=== PATIENT | male | born 1940 | race Caucasian/White ===

== ENCOUNTER 2020-05-16 13:06 | Inpatient (IN) | payer OTHER ==
[2020-05-16] MEDS ORDERED: SODIUM CHLORIDE 0.9% 500 ML INFUS.BAG IV ONE (13:38)
[2020-05-16] MEDS ORDERED: DEXAMETHASONE SOD PHOSPHATE 4 MG/1 ML VIAL IVPUSH ONE (13:38)
[2020-05-16 14:21] LABS: BASO % 0.9 % (0-2.0); HEMATOCRIT 25.1 % (35.4-49); HEMOGLOBIN 8.4 GM/dL (11.7-16.9); LYMPH % 10.3 % (8-40); MCH 31.3 pg (25.7-33.7); MCHC 33.5 g/dl (32.0-35.9); MEAN CELL VOLUME 93.4 fl (80-96); MEAN PLT VOLUME 9.8 fl (7.5-11.1); MONO % 10.3 % (3.8-10.2); NEUT % 78.5 % (42.8-82.8); PLATELET COUNT 620 K/MM3 (134-434); RBC 2.69 M/mm3 (4.00-5.60); RDW 18.1 % (11.9-15.9); WHITE BLOOD COUNT 18.7 K/mm3 (4.0-10.0)
[2020-05-16 14:24] LABS: VENOUS O2 SATURATION 71.4 % (70-80); VENOUS PCO2 39.6 mmHg (38-52); VENOUS PH 7.425 (7.310-7.410)
[2020-05-16 14:28] LABS: INR 1.51 (0.83-1.09)
[2020-05-16 14:30] LABS: ACTIVATED PTT 32.1 SECONDS (25.2-36.5)
[2020-05-16 14:39] LABS: POTASSIUM 4.4 mmol/L (3.5-5.1)
[2020-05-16 14:41] LABS: CALCIUM 7.5 mg/dL (8.5-10.1)
[2020-05-16 14:42] LABS: ALBUMIN 2.9 g/dl (3.4-5.0); BLOOD UREA NITROGEN 22.3 mg/dL (7-18)
[2020-05-16] MEDS ORDERED: DEXAMETHASONE SOD PHOSPHATE 4 MG/1 ML VIAL ONE (14:44)
[2020-05-16 14:45] LABS: BILIRUBIN,DIRECT 0.3 mg/dL (0.0-0.2)
[2020-05-16 14:46] LABS: ANISOCYTOSIS 1+; MACROCYTOSIS 0; PLATELET ESTIMATE INCREASED
[2020-05-16 14:47] LABS: BILIRUBIN,TOTAL 0.5 mg/dL (0.2-1); TOT PROT 6.2 g/dl (6.4-8.2)
[2020-05-16 14:58] LABS: CREATININE 1.1 mg/dL (0.55-1.3)
[2020-05-16 17:31] LABS: URINE APPEARANCE CLEAR; URINE BILIRUBIN NEGATIVE (NEGATIVE); URINE COLOR YELLOW; URINE GLUCOSE (UA) NEGATIVE (NEGATIVE); URINE KETONE NEGATIVE (NEGATIVE); URINE LEUK ESTERASE NEGATIVE (NEGATIVE); URINE NITRITE NEGATIVE (NEGATIVE); URINE PROTEIN TRACE (NEGATIVE); URINE UROBILINOGEN 0.2 mg/dL (0.2-1.0)
[2020-05-16] MEDS: ENOXAPARIN NA (PORCINE) 40 MG/0.4 ML DISP.SYRIN SQ SCH (17:45)
[2020-05-16] MEDS ORDERED: SODIUM CHLORIDE 1,000 ML IV SCH (17:45)
[2020-05-16] MEDS ORDERED: HYDROXYUREA 500 MG CAPSULE PO SCH (18:30)
[2020-05-17 08:17] LABS: BASO % 0.6 % (0-2.0); HEMOGLOBIN 8.5 GM/dL (11.7-16.9); LYMPH % 8.9 % (8-40); MCH 31.2 pg (25.7-33.7); MCHC 32.8 g/dl (32.0-35.9); MEAN CELL VOLUME 95.1 fl (80-96); MEAN PLT VOLUME 9.9 fl (7.5-11.1); MONO % 6.3 % (3.8-10.2); NEUT % 84.2 % (42.8-82.8); PLATELET COUNT 713 K/MM3 (134-434); RBC 2.74 M/mm3 (4.00-5.60); RDW 18.6 % (11.9-15.9); WHITE BLOOD COUNT 24.3 K/mm3 (4.0-10.0)
[2020-05-17 08:46] LABS: POTASSIUM 5.1 mmol/L (3.5-5.1)
[2020-05-17 08:51] LABS: ALBUMIN 2.7 g/dl (3.4-5.0); BLOOD UREA NITROGEN 18.4 mg/dL (7-18); CALCIUM 7.9 mg/dL (8.5-10.1); MAGNESIUM 2.1 mg/dL (1.8-2.4)
[2020-05-17 08:53] LABS: CREATININE 0.8 mg/dL (0.55-1.3)
[2020-05-17 08:54] LABS: BILIRUBIN,TOTAL 0.8 mg/dL (0.2-1); PHOSPHOROUS 3.6 mg/dL (2.5-4.9); TOT PROT 6.2 g/dl (6.4-8.2)
[2020-05-17] MEDS: DEXAMETHASONE SOD PHOSPHATE 4 MG/1 ML VIAL IVPUSH SCH (09:52)
[2020-05-17] MEDS: ENOXAPARIN NA (PORCINE) 40 MG/0.4 ML DISP.SYRIN SQ SCH (09:53)
[2020-05-17] MEDS ORDERED: HYDROXYUREA 500 MG CAPSULE PO SCH (10:00)
[2020-05-17] MEDS: HYDROXYUREA 500 MG CAPSULE PO SCH (10:50)
[2020-05-17] MEDS: ACETAMINOPHEN 325 MG TABLET (FP) PO PRN ×2 (12:19→18:35)
[2020-05-17 12:27] LABS: ANISOCYTOSIS 1+; MACROCYTOSIS 0; OVALOCYTE 1+; PLATELET ESTIMATE INCREASED
[2020-05-17] MEDS ORDERED: ENOXAPARIN NA (PORCINE) 40 MG/0.4 ML DISP.SYRIN SQ SCH (13:15)
[2020-05-17] MEDS ORDERED: PT OWN MED DRAWER 7, Y5N ONE (14:06)
[2020-05-17] MEDS: ZINC SULFATE 220 MG CAPSULE (FP) PO SCH (14:15)
[2020-05-17] MEDS: AZITHROMYCIN IVPB 500 MG/250 ML BAG IVPB SCH (14:15)
[2020-05-17] MEDS ORDERED: REMDESIVIR 200 MG in SODIUM CHLORIDE 210 ML IVPB ONE (15:00)
[2020-05-17] MEDS ORDERED: SODIUM CHLORIDE 0.45% 1,000 ML IV SCH (16:15)
[2020-05-17] MEDS: ASCORBIC ACID 250 MG TABLET (FP) PO SCH (16:30)
[2020-05-17] MEDS: CHOLECALCIFEROL (VIT D3) 5000 UNITS (125 MCG) CAP PO SCH (16:30)
[2020-05-17] MEDS: APIXABAN 5 MG TABLET PO SCH (23:06)
[2020-05-18] MEDS: ACETAMINOPHEN 325 MG TABLET (FP) PO PRN (03:07)
[2020-05-18 07:57] LABS: BASO % 0.5 % (0-2.0); HEMATOCRIT 24.7 % (35.4-49); HEMOGLOBIN 7.9 GM/dL (11.7-16.9); LYMPH % 7.7 % (8-40); MEAN CELL VOLUME 96.8 fl (80-96); MEAN PLT VOLUME 10.3 fl (7.5-11.1); MONO % 8.6 % (3.8-10.2); NEUT % 83.2 % (42.8-82.8); PLATELET COUNT 793 K/MM3 (134-434); RBC 2.55 M/mm3 (4.00-5.60); RDW 18.1 % (11.9-15.9)
[2020-05-18 08:20] LABS: POTASSIUM 5.1 mmol/L (3.5-5.1)
[2020-05-18] MEDS ORDERED: ACETAMINOPHEN INJECTION 100 ML IVPB ONE (08:42)
[2020-05-18 08:47] LABS: WHITE BLOOD COUNT 27.8 K/mm3 (4.0-10.0)
[2020-05-18 09:04] LABS: ARTERIAL BLD GAS O2 SATURATION 81.8 mmHg (95-98); ARTERIAL BLOOD GAS BASE EXCESS -6.5 mmol/L (-2-2); ARTERIAL BLOOD GAS PO2 48.7 mmHg (80-100); ARTERIAL BLOOD GAS pH 7.327 (7.350-7.450)
[2020-05-18 09:06] LABS: ALLENS TEST POSITIVE; VENT RATE 20
[2020-05-18 09:06] LABS: ALBUMIN 2.6 g/dl (3.4-5.0); BLOOD UREA NITROGEN 17.9 mg/dL (7-18); CALCIUM 7.7 mg/dL (8.5-10.1)
[2020-05-18 09:07] LABS: VENT MODE IPAP 20/EPAP 14
[2020-05-18 09:09] LABS: CREATININE 0.7 mg/dL (0.55-1.3)
[2020-05-18 09:10] LABS: BILIRUBIN,TOTAL 0.7 mg/dL (0.2-1); TOT PROT 6.3 g/dl (6.4-8.2)
[2020-05-18] MEDS ORDERED: PT OWN MED DRAWER 7, Y5N ONE (09:21)
[2020-05-18] MEDS: APIXABAN 5 MG TABLET PO SCH (09:32)
[2020-05-18] MEDS: CHOLECALCIFEROL (VIT D3) 5000 UNITS (125 MCG) CAP PO SCH (09:33)
[2020-05-18] MEDS: ZINC SULFATE 220 MG CAPSULE (FP) PO SCH (09:33)
[2020-05-18] MEDS: ASCORBIC ACID 250 MG TABLET (FP) PO SCH (09:33)
[2020-05-18] MEDS: AZITHROMYCIN IVPB 500 MG/250 ML BAG IVPB SCH (09:34)
[2020-05-18] MEDS: DEXAMETHASONE SOD PHOSPHATE 4 MG/1 ML VIAL IVPUSH SCH (09:35)
[2020-05-18] MEDS: ACETAMINOPHEN 1000 MG/100 ML VIAL (NON FORMULARY) IVPB PRN ×2 (09:35→21:51)
[2020-05-18] MEDS ORDERED: HYDROXYUREA 500 MG CAPSULE PO SCH (10:00)
[2020-05-18 11:21] LABS: ANISOCYTOSIS 1+; MACROCYTOSIS 1+; PLATELET ESTIMATE INCREASED
[2020-05-18] MEDS: REMDESIVIR 100 MG in SODIUM CHLORIDE 230 ML IVPB SCH (15:14)
[2020-05-18] MEDS ORDERED: MORPHINE SULFATE 2 MG/ML VIAL ONE (18:00)
[2020-05-18] MEDS ORDERED: MORPHINE SULFATE 2 MG/ML VIAL IVPUSH ONE (18:15)
[2020-05-18] MEDS: ENOXAPARIN NA (PORCINE) 80 MG/0.8 ML DISP.SYRIN SQ SCH (21:35)
[2020-05-19 06:58] LABS: BASO % 0.4 % (0-2.0); HEMATOCRIT 25.4 % (35.4-49); HEMOGLOBIN 7.9 GM/dL (11.7-16.9); LYMPH % 9.8 % (8-40); MCH 30.1 pg (25.7-33.7); MCHC 31.1 g/dl (32.0-35.9); MEAN CELL VOLUME 96.7 fl (80-96); MEAN PLT VOLUME 11.1 fl (7.5-11.1); MONO % 6.7 % (3.8-10.2); NEUT % 83.1 % (42.8-82.8); RBC 2.63 M/mm3 (4.00-5.60); RDW 18.5 % (11.9-15.9)
[2020-05-19 07:31] LABS: CHLORIDE 103 mmol/L (98-107); POTASSIUM 5.2 mmol/L (3.5-5.1); SODIUM 137 mmol/L (136-145)
[2020-05-19 07:41] LABS: CALCIUM 8.4 mg/dL (8.5-10.1)
[2020-05-19 07:42] LABS: ALBUMIN 2.6 g/dl (3.4-5.0); ANION GAP 8 MMOL/L (8-16); BLOOD UREA NITROGEN 29.5 mg/dL (7-18); CO2 25 mmol/L (21-32); GLUCOSE,RANDOM 107 mg/dL (74-106)
[2020-05-19 07:45] LABS: CREATININE 0.9 mg/dL (0.55-1.3); SGOT/AST 107 U/L (15-37); SGPT/ALT 71 U/L (13-61)
[2020-05-19 07:46] LABS: BILIRUBIN,TOTAL 0.8 mg/dL (0.2-1); TOT PROT 6.3 g/dl (6.4-8.2)
[2020-05-19 07:47] LABS: ALK PHOS 92 U/L (45-117)
[2020-05-19 07:57] LABS: LDH > 1000 U/L (87-246)
[2020-05-19] MEDS ORDERED: MIDAZOLAM 100 MG in SODIUM CHLORIDE 100 ML IVPB SCH (08:15)
[2020-05-19 10:15] LABS: ANISOCYTOSIS 1+; MACROCYTOSIS 1+; OVALOCYTE 1+; PLATELET ESTIMATE INCREASED
[2020-05-19] MEDS: AZITHROMYCIN IVPB 500 MG/250 ML BAG IVPB SCH (10:18)
[2020-05-19] MEDS: ENOXAPARIN NA (PORCINE) 80 MG/0.8 ML DISP.SYRIN SQ SCH ×2 (10:18→22:26)
[2020-05-19] MEDS: DEXAMETHASONE SOD PHOSPHATE 4 MG/1 ML VIAL IVPUSH SCH (10:18)
[2020-05-19] MEDS: ASCORBIC ACID 250 MG TABLET (FP) PO SCH (10:41)
[2020-05-19] MEDS: CHOLECALCIFEROL (VIT D3) 5000 UNITS (125 MCG) CAP PO SCH (10:41)
[2020-05-19] MEDS: ZINC SULFATE 220 MG CAPSULE (FP) PO SCH (10:41)
[2020-05-19] MEDS: HYDROXYUREA 500 MG CAPSULE PO SCH ×2 (10:41→14:56)
[2020-05-19 11:59] LABS: PLATELET COUNT 563 K/MM3 (134-434)
[2020-05-19] MEDS ORDERED: PT OWN MED DRAWER 7, Y5N ONE ×3 (12:38→16:04)
[2020-05-19] MEDS ORDERED: SODIUM ZIRCONIUM CYCLOSILICATE (LOKELMA) 5 GM PACKET PO ONE (12:40)
[2020-05-19] MEDS: MUPIROCIN 2% TOPICAL OINTMENT FOR DECOLONIZATION NS SCH ×2 (13:33→22:26)
[2020-05-19] MEDS: REMDESIVIR 100 MG in SODIUM CHLORIDE 230 ML IVPB SCH (16:20)
[2020-05-19] MEDS ORDERED: ACETAMINOPHEN 325 MG TABLET (FP) PO PRN (19:24)
[2020-05-19] MEDS: CHLORHEXIDINE GLUCONATE 4% CLEANSER FOR DECOLONIZATION TP SCH (22:26)
[2020-05-19] MEDS ORDERED: DEXAMETHASONE SOD PHOSPHATE 4 MG/1 ML VIAL IVPUSH ONE (22:49)
[2020-05-20] MEDS ORDERED: LORazepam 2 MG/ML SDV VIAL IVPUSH ONE ×2 (01:23→01:56)
[2020-05-20] MEDS ORDERED: RAPID SEQUENCE INTUBATION KIT NR ONE ×2 (02:38→05:55)
[2020-05-20] MEDS ORDERED: ACETAMINOPHEN INJECTION 100 ML IVPB ONE (02:42)
[2020-05-20] MEDS ORDERED: ACETAMINOPHEN 1000 MG/100 ML VIAL (NON FORMULARY) IVPB ONE (03:07)
[2020-05-20] MEDS ORDERED: MIDAZOLAM 100 MG/100 ML MG IVPB ONE ×2 (06:10→18:49)
[2020-05-20] MEDS ORDERED: FENTANYL IVPB 500 MCG/100 ML BAG IVPB ONE (06:10)
[2020-05-20 06:27] LABS: ARTERIAL BLD GAS O2 SATURATION 90.1 mmHg (95-98); ARTERIAL BLOOD GAS BASE EXCESS -3.7 mmol/L (-2-2); ARTERIAL BLOOD GAS PO2 62.9 mmHg (80-100); ARTERIAL BLOOD GAS pH 7.314 (7.350-7.450)
[2020-05-20 06:28] LABS: ALLENS TEST POSITIVE; VENT MODE S/T; VENT RATE 20
[2020-05-20] MEDS: MIDAZOLAM 100 MG in SODIUM CHLORIDE 100 ML IVPB SCH (06:30)
[2020-05-20] MEDS: FENTANYL IVPB 500 MCG/100 ML BAG IVPB SCH ×2 (06:30→21:35)
[2020-05-20] MEDS: VECURONIUM BROMIDE 100 MG/100 ML BAG IVPB SCH (06:30)
[2020-05-20] MEDS ORDERED: ETOMIDATE 40 MG/20 ML VIAL IVPUSH ONE (06:39)
[2020-05-20] MEDS ORDERED: SUCCINYLCHOLINE CHLORIDE 200 MG/10 ML VIAL IVPUSH ONE (06:39)
[2020-05-20] MEDS ORDERED: LACTATED RINGERS SOLUTION 1000 ML INFUS.BAG IV ONE (06:39)
[2020-05-20 07:11] LABS: BASO % 0.2 % (0-2.0); HEMATOCRIT 28.7 % (35.4-49); HEMOGLOBIN 8.9 GM/dL (11.7-16.9); LYMPH % 9.2 % (8-40); MCH 30.3 pg (25.7-33.7); MEAN CELL VOLUME 97.8 fl (80-96); MEAN PLT VOLUME 10.8 fl (7.5-11.1); MONO % 3.1 % (3.8-10.2); NEUT % 87.5 % (42.8-82.8); PLATELET COUNT 712 K/MM3 (134-434); RBC 2.94 M/mm3 (4.00-5.60); RDW 18.5 % (11.9-15.9)
[2020-05-20 07:27] LABS: POTASSIUM 5.3 mmol/L (3.5-5.1)
[2020-05-20 07:33] LABS: ALBUMIN 2.4 g/dl (3.4-5.0); BLOOD UREA NITROGEN 34.5 mg/dL (7-18); CALCIUM 8.1 mg/dL (8.5-10.1); MAGNESIUM 2.5 mg/dL (1.8-2.4)
[2020-05-20 07:36] LABS: CREATININE 1.2 mg/dL (0.55-1.3)
[2020-05-20 07:37] LABS: PHOSPHOROUS 6.7 mg/dL (2.5-4.9)
[2020-05-20 07:38] LABS: TOT PROT 6.8 g/dl (6.4-8.2)
[2020-05-20] MEDS ORDERED: SODIUM ZIRCONIUM CYCLOSILICATE (LOKELMA) 5 GM PACKET PO ONE ×2 (08:37→15:15)
[2020-05-20] MEDS ORDERED: PT OWN MED DRAWER 7, Y5N ONE ×3 (09:41→21:31)
[2020-05-20] MEDS: ENOXAPARIN NA (PORCINE) 80 MG/0.8 ML DISP.SYRIN SQ SCH ×2 (09:47→21:35)
[2020-05-20] MEDS: AZITHROMYCIN IVPB 500 MG/250 ML BAG IVPB SCH (09:47)
[2020-05-20] MEDS: MUPIROCIN 2% TOPICAL OINTMENT FOR DECOLONIZATION NS SCH ×2 (09:48→21:35)
[2020-05-20] MEDS: DEXAMETHASONE SOD PHOSPHATE 4 MG/1 ML VIAL IVPUSH SCH (09:48)
[2020-05-20 09:59] LABS: ANISOCYTOSIS 2+; MACROCYTOSIS 0; PLATELET ESTIMATE INCREASED; TARGET CELLS 1+
[2020-05-20] MEDS ORDERED: HYDROXYUREA 500 MG CAPSULE PO SCH ×2 (10:00→18:26)
[2020-05-20 11:09] LABS: ARTERIAL BLD GAS O2 SATURATION 88.4 mmHg (95-98); ARTERIAL BLOOD GAS BASE EXCESS -3.4 mmol/L (-2-2); ARTERIAL BLOOD GAS PO2 64.1 mmHg (80-100); ARTERIAL BLOOD GAS pH 7.245 (7.350-7.450)
[2020-05-20] MEDS: ASCORBIC ACID 250 MG TABLET (FP) PO SCH (11:10)
[2020-05-20] MEDS: CHOLECALCIFEROL (VIT D3) 5000 UNITS (125 MCG) CAP PO SCH (11:10)
[2020-05-20] MEDS: ZINC SULFATE 220 MG CAPSULE (FP) PO SCH (11:10)
[2020-05-20 11:14] LABS: ALLENS TEST POSITIVE
[2020-05-20 11:15] LABS: VENT MODE A/C; VENT RATE 28
[2020-05-20] MEDS: SODIUM CHLORIDE 1,000 ML IV SCH (12:31)
[2020-05-20] MEDS ORDERED: NOREPINEPHRINE BITARTRATE 8,000 MCG in DEXTROSE 5%-WATER - 492 ML IV SCH (13:30)
[2020-05-20] MEDS: NOREPINEPHRINE D5W PREMIX 16,000 MCG/500 ML BAG IVPB SCH (14:00)
[2020-05-20] MEDS ORDERED: FENTANYL NS IVPB 500 MCG/100 ML BAG IVPB ONE (14:11)
[2020-05-20] MEDS: REMDESIVIR 100 MG in SODIUM CHLORIDE 230 ML IVPB SCH (15:00)
[2020-05-20] MEDS: HYDROXYUREA PO SCH (21:35)
[2020-05-20] MEDS: CHLORHEXIDINE GLUCONATE 4% CLEANSER FOR DECOLONIZATION TP SCH (21:35)
[2020-05-20] MEDS: [UNRECOGNIZED DRUG - OTHER] PO SCH (21:35)
[2020-05-20] MEDS ORDERED: DEXAMETHASONE SOD PHOSPHATE 10 MG/1 ML VIAL IVPUSH ONE ×2 (22:00)
[2020-05-21] MEDS ORDERED: MIDAZOLAM 100 MG/100 ML MG IVPB ONE (00:50)
[2020-05-21] MEDS: SODIUM CHLORIDE 1,000 ML IV SCH ×2 (01:47→12:18)
[2020-05-21] MEDS: MIDAZOLAM 100 MG in SODIUM CHLORIDE 100 ML IVPB SCH ×2 (01:47→09:53)
[2020-05-21 06:34] LABS: ARTERIAL BLD GAS O2 SATURATION 88.3 mmHg (95-98); ARTERIAL BLOOD GAS BASE EXCESS -1.4 mmol/L (-2-2); ARTERIAL BLOOD GAS PO2 62.7 mmHg (80-100); ARTERIAL BLOOD GAS pH 7.268 (7.350-7.450)
[2020-05-21 06:35] LABS: ALLENS TEST POSITIVE
[2020-05-21 06:36] LABS: VENT MODE A/C; VENT RATE 28
[2020-05-21 07:06] LABS: BASO % 0.1 % (0-2.0); HEMATOCRIT 25.4 % (35.4-49); HEMOGLOBIN 7.8 GM/dL (11.7-16.9); LYMPH % 4.4 % (8-40); MCHC 30.6 g/dl (32.0-35.9); MEAN CELL VOLUME 98.1 fl (80-96); MONO % 2.8 % (3.8-10.2); NEUT % 92.7 % (42.8-82.8); PLATELET COUNT 783 K/MM3 (134-434); RBC 2.59 M/mm3 (4.00-5.60)
[2020-05-21] MEDS: VECURONIUM BROMIDE 100 MG/100 ML BAG IVPB SCH (07:06)
[2020-05-21 07:13] LABS: WHITE BLOOD COUNT 40.9 K/mm3 (4.0-10.0)
[2020-05-21 07:24] LABS: POTASSIUM 5.7 mmol/L (3.5-5.1)
[2020-05-21 07:26] LABS: ALBUMIN 2.2 g/dl (3.4-5.0); BLOOD UREA NITROGEN 45.6 mg/dL (7-18); CALCIUM 7.3 mg/dL (8.5-10.1)
[2020-05-21 07:27] LABS: MAGNESIUM 2.6 mg/dL (1.8-2.4)
[2020-05-21 07:30] LABS: PHOSPHOROUS 4.9 mg/dL (2.5-4.9)
[2020-05-21 07:31] LABS: BILIRUBIN,TOTAL 0.4 mg/dL (0.2-1); TOT PROT 6.3 g/dl (6.4-8.2)
[2020-05-21] MEDS ORDERED: PT OWN MED DRAWER 7, Y5N ONE ×3 (07:52→14:02)
[2020-05-21] MEDS: FENTANYL IVPB 500 MCG/100 ML BAG IVPB SCH (08:00)
[2020-05-21] MEDS: AZITHROMYCIN IVPB 500 MG/250 ML BAG IVPB SCH (09:50)
[2020-05-21] MEDS: ENOXAPARIN NA (PORCINE) 80 MG/0.8 ML DISP.SYRIN SQ SCH ×2 (09:51→22:34)
[2020-05-21] MEDS: DEXAMETHASONE SOD PHOSPHATE 4 MG/1 ML VIAL IVPUSH SCH (09:52)
[2020-05-21] MEDS: ZINC SULFATE 220 MG CAPSULE (FP) PO SCH (09:52)
[2020-05-21] MEDS ORDERED: SODIUM ZIRCONIUM CYCLOSILICATE (LOKELMA) 5 GM PACKET PO SCH (10:00)
[2020-05-21] MEDS ORDERED: HYDROXYUREA 500 MG CAPSULE PO SCH ×2 (10:00→18:11)
[2020-05-21] MEDS: PANTOPRAZOLE SODIUM 40 MG VIAL IVPUSH SCH (10:01)
[2020-05-21] MEDS: MUPIROCIN 2% TOPICAL OINTMENT FOR DECOLONIZATION NS SCH ×2 (10:01→22:35)
[2020-05-21] MEDS: ASCORBIC ACID 250 MG TABLET (FP) PO SCH (10:04)
[2020-05-21] MEDS: CHOLECALCIFEROL (VIT D3) 5000 UNITS (125 MCG) CAP PO SCH (10:06)
[2020-05-21 11:22] LABS: ANISOCYTOSIS 2+; MACROCYTOSIS 0; OVALOCYTE 1+; PLATELET ESTIMATE INCREASED
[2020-05-21] MEDS: HYDROXYUREA GT SCH (12:20)
[2020-05-21] MEDS: [UNRECOGNIZED DRUG - OTHER] GT SCH (12:20)
[2020-05-21] MEDS ORDERED: FENTANYL NS IVPB 500 MCG/100 ML BAG IVPB ONE (14:01)
[2020-05-21] MEDS: FENTANYL NS IVPB 500 MCG/100 ML BAG IVPB SCH ×2 (14:24→22:36)
[2020-05-21] MEDS: REMDESIVIR 100 MG in SODIUM CHLORIDE 230 ML IVPB SCH (15:25)
[2020-05-21] MEDS: NOREPINEPHRINE D5W PREMIX 16,000 MCG/500 ML BAG IVPB SCH (16:24)
[2020-05-21] MEDS ORDERED: DEXAMETHASONE SOD PHOSPHATE 4 MG/1 ML VIAL IVPUSH ONE (22:00)
[2020-05-21] MEDS: SODIUM ZIRCONIUM CYCLOSILICATE (LOKELMA) 5 GM PACKET PO SCH (22:34)
[2020-05-21] MEDS: CHLORHEXIDINE GLUCONATE 4% CLEANSER FOR DECOLONIZATION TP SCH (22:35)
[2020-05-22] MEDS ORDERED: MIDAZOLAM 100 MG/100 ML MG IVPB ONE ×2 (03:21→09:32)
[2020-05-22 06:05] LABS: ARTERIAL BLD GAS O2 SATURATION 89.4 mmHg (95-98); ARTERIAL BLOOD GAS BASE EXCESS -0.5 mmol/L (-2-2); ARTERIAL BLOOD GAS pH 7.314 (7.350-7.450)
[2020-05-22 06:11] LABS: ALLENS TEST POSITIVE
[2020-05-22 06:12] LABS: VENT MODE A/C; VENT RATE 28
[2020-05-22 07:44] LABS: POTASSIUM 5.8 mmol/L (3.5-5.1)
[2020-05-22 08:00] LABS: BILIRUBIN,TOTAL 0.5 mg/dL (0.2-1); BLOOD UREA NITROGEN 41.3 mg/dL (7-18); CALCIUM 7.7 mg/dL (8.5-10.1)
[2020-05-22 08:01] LABS: MAGNESIUM 2.7 mg/dL (1.8-2.4); PHOSPHOROUS 4.1 mg/dL (2.5-4.9)
[2020-05-22 08:31] LABS: BASO % 0.2 % (0-2.0); HEMATOCRIT 24.6 % (35.4-49); HEMOGLOBIN 7.4 GM/dL (11.7-16.9); MCH 29.5 pg (25.7-33.7); MCHC 30.1 g/dl (32.0-35.9); MEAN CELL VOLUME 97.8 fl (80-96); MEAN PLT VOLUME 10.6 fl (7.5-11.1); MONO % 2.6 % (3.8-10.2); NEUT % 93.2 % (42.8-82.8); PLATELET COUNT 744 K/MM3 (134-434); RBC 2.51 M/mm3 (4.00-5.60); RDW 18.9 % (11.9-15.9)
[2020-05-22] MEDS ORDERED: PT OWN MED DRAWER 7, Y5N ONE (09:33)
[2020-05-22] MEDS: ENOXAPARIN NA (PORCINE) 80 MG/0.8 ML DISP.SYRIN SQ SCH ×2 (09:56→23:05)
[2020-05-22] MEDS: DEXAMETHASONE SOD PHOSPHATE 4 MG/1 ML VIAL IVPUSH SCH (09:56)
[2020-05-22] MEDS: MUPIROCIN 2% TOPICAL OINTMENT FOR DECOLONIZATION NS SCH ×2 (09:57→23:05)
[2020-05-22] MEDS: ZINC SULFATE 220 MG CAPSULE (FP) PO SCH (09:57)
[2020-05-22] MEDS: SODIUM CHLORIDE 1,000 ML IV SCH (09:58)
[2020-05-22] MEDS: ASCORBIC ACID 250 MG TABLET (FP) PO SCH (09:58)
[2020-05-22] MEDS: PANTOPRAZOLE SODIUM 40 MG VIAL IVPUSH SCH (09:58)
[2020-05-22] MEDS: SODIUM ZIRCONIUM CYCLOSILICATE (LOKELMA) 5 GM PACKET PO SCH ×2 (09:59→23:05)
[2020-05-22] MEDS: VECURONIUM BROMIDE 100 MG/100 ML BAG IVPB SCH (09:59)
[2020-05-22] MEDS: MIDAZOLAM 100 MG in SODIUM CHLORIDE 100 ML IVPB SCH ×2 (10:01→10:02)
[2020-05-22 10:56] LABS: WHITE BLOOD COUNT 37.8 K/mm3 (4.0-10.0)
[2020-05-22] MEDS: FENTANYL NS IVPB 500 MCG/100 ML BAG IVPB SCH (11:00)
[2020-05-22] MEDS: CHOLECALCIFEROL (VIT D SOLUTION) 400 UNIT/1 ML DROPS GT SCH (12:39)
[2020-05-22] MEDS: NOREPINEPHRINE D5W PREMIX 16,000 MCG/500 ML BAG IVPB SCH (13:53)
[2020-05-22] MEDS ORDERED: FUROSEMIDE 40 MG/5 ML UNIT-DOSE CUP PO ONE (14:22)
[2020-05-22] MEDS ORDERED: SODIUM CHLORIDE 0.45% 1,000 ML IV SCH (14:30)
[2020-05-22 15:39] LABS: ANISOCYTOSIS 1+; MACROCYTOSIS 1+; OVALOCYTE 1+; PLATELET ESTIMATE INCREASED
[2020-05-22] MEDS: CHLORHEXIDINE GLUCONATE 4% CLEANSER FOR DECOLONIZATION TP SCH (23:05)
[2020-05-23] MEDS ORDERED: PT OWN MED DRAWER 7, Y5N ONE (10:22)
[2020-05-23] MEDS: DEXAMETHASONE SOD PHOSPHATE 4 MG/1 ML VIAL IVPUSH SCH (11:00)
[2020-05-23] MEDS: ENOXAPARIN NA (PORCINE) 80 MG/0.8 ML DISP.SYRIN SQ SCH ×2 (11:00→22:33)
[2020-05-23] MEDS: MUPIROCIN 2% TOPICAL OINTMENT FOR DECOLONIZATION NS SCH ×2 (11:00→22:34)
[2020-05-23] MEDS: SODIUM ZIRCONIUM CYCLOSILICATE (LOKELMA) 5 GM PACKET PO SCH (11:00)
[2020-05-23] MEDS: ZINC SULFATE 220 MG CAPSULE (FP) PO SCH (11:00)
[2020-05-23] MEDS: CHOLECALCIFEROL (VIT D SOLUTION) 400 UNIT/1 ML DROPS GT SCH (11:01)
[2020-05-23] MEDS: ASCORBIC ACID 250 MG TABLET (FP) PO SCH (11:01)
[2020-05-23] MEDS: PANTOPRAZOLE SODIUM 40 MG VIAL IVPUSH SCH (11:01)
[2020-05-23 11:53] LABS: BASO % 0.2 % (0-2.0); HEMATOCRIT 24.5 % (35.4-49); LYMPH % 2.7 % (8-40); MCH 29.2 pg (25.7-33.7); MCHC 28.3 g/dl (32.0-35.9); MEAN CELL VOLUME 103.2 fl (80-96); MEAN PLT VOLUME 11.3 fl (7.5-11.1); MONO % 4.4 % (3.8-10.2); NEUT % 92.7 % (42.8-82.8); PLATELET COUNT 790 K/MM3 (134-434); RBC 2.38 M/mm3 (4.00-5.60); RDW 18.6 % (11.9-15.9)
[2020-05-23 11:56] LABS: POTASSIUM 5.8 mmol/L (3.5-5.1)
[2020-05-23 11:58] LABS: CALCIUM 7.5 mg/dL (8.5-10.1)
[2020-05-23 11:59] LABS: ALBUMIN 1.9 g/dl (3.4-5.0); BLOOD UREA NITROGEN 44.5 mg/dL (7-18)
[2020-05-23 12:02] LABS: CREATININE 0.9 mg/dL (0.55-1.3)
[2020-05-23 12:03] LABS: BILIRUBIN,TOTAL 0.4 mg/dL (0.2-1); TOT PROT 5.9 g/dl (6.4-8.2)
[2020-05-23 12:07] LABS: HEMOGLOBIN 6.9 GM/dL (11.7-16.9)
[2020-05-23] MEDS ORDERED: SODIUM CHLORIDE 500 ML IV STA (13:30)
[2020-05-23 13:31] LABS: WHITE BLOOD COUNT 43.5 K/mm3 (4.0-10.0)
[2020-05-23] MEDS ORDERED: FUROSEMIDE 40 MG/4 ML INJECTABLE VIAL IVPUSH ONE (13:31)
[2020-05-23] MEDS ORDERED: SODIUM BICARBONATE 8.4% 50 MEQ/50 ML DISP.SYRIN IVPUSH ONE (13:32)
[2020-05-23] MEDS ORDERED: INSULIN REGULAR HUMAN 100 UNITS/ML *VIAL IVPUSH ONE (13:32)
[2020-05-23] MEDS ORDERED: CALCIUM GLUCONATE 10% - 1,000 MG/10 ML VIAL IVPB ONE (13:32)
[2020-05-23] MEDS ORDERED: DEXTROSE 50%-WATER - 25 GM/50 ML VIAL IVPUSH ONE (13:32)
[2020-05-23 14:41] LABS: ANISOCYTOSIS 2+; MACROCYTOSIS 1+; PLATELET ESTIMATE INCREASED
[2020-05-23] MEDS ORDERED: DEXTROSE 50%-WATER 25 GM/50 ML DISP.SYRIN ONE (15:19)
[2020-05-23 16:54] LABS: POTASSIUM 5.7 mmol/L (3.5-5.1)
[2020-05-23] MEDS: SODIUM CHLORIDE 0.45% 1,000 ML IV SCH (16:54)
[2020-05-23 16:57] LABS: BLOOD UREA NITROGEN 40.9 mg/dL (7-18); CALCIUM 7.5 mg/dL (8.5-10.1)
[2020-05-23 17:00] LABS: CREATININE 0.8 mg/dL (0.55-1.3)
[2020-05-23] MEDS: FENTANYL NS IVPB 500 MCG/100 ML BAG IVPB SCH (18:00)
[2020-05-23 18:38] LABS: POTASSIUM 5.1 mmol/L (3.5-5.1)
[2020-05-23 18:39] LABS: CALCIUM 8.1 mg/dL (8.5-10.1)
[2020-05-23 18:40] LABS: BLOOD UREA NITROGEN 40.3 mg/dL (7-18)
[2020-05-23 18:43] LABS: CREATININE 0.8 mg/dL (0.55-1.3)
[2020-05-23] MEDS: NOREPINEPHRINE D5W PREMIX 16,000 MCG/500 ML BAG IVPB SCH (19:10)
[2020-05-23] MEDS ORDERED: MIDAZOLAM 100 MG/100 ML MG IVPB ONE ×2 (21:14→23:41)
[2020-05-23] MEDS: CHLORHEXIDINE GLUCONATE 4% CLEANSER FOR DECOLONIZATION TP SCH (22:33)
[2020-05-23] MEDS: MIDAZOLAM 100 MG in SODIUM CHLORIDE 100 ML IVPB SCH (22:34)
[2020-05-23] MEDS: VECURONIUM BROMIDE 100 MG/100 ML BAG IVPB SCH (22:36)
[2020-05-24] MEDS: SODIUM ZIRCONIUM CYCLOSILICATE (LOKELMA) 5 GM PACKET PO SCH ×3 (01:50→21:26)
[2020-05-24] MEDS ORDERED: MIDAZOLAM 100 MG/100 ML MG IVPB ONE ×2 (03:05→21:04)
[2020-05-24 07:26] LABS: BASO % 0.1 % (0-2.0); HEMATOCRIT 27.2 % (35.4-49); HEMOGLOBIN 8.4 GM/dL (11.7-16.9); LYMPH % 2.1 % (8-40); MCH 28.9 pg (25.7-33.7); MCHC 30.9 g/dl (32.0-35.9); MEAN CELL VOLUME 93.7 fl (80-96); MEAN PLT VOLUME 10.8 fl (7.5-11.1); MONO % 5.4 % (3.8-10.2); NEUT % 92.4 % (42.8-82.8); PLATELET COUNT 802 K/MM3 (134-434); RDW 21.8 % (11.9-15.9)
[2020-05-24 07:34] LABS: WHITE BLOOD COUNT 46.3 K/mm3 (4.0-10.0)
[2020-05-24 07:49] LABS: POTASSIUM 5.5 mmol/L (3.5-5.1)
[2020-05-24 07:52] LABS: ALBUMIN 1.8 g/dl (3.4-5.0); BLOOD UREA NITROGEN 39.9 mg/dL (7-18); CALCIUM 7.5 mg/dL (8.5-10.1)
[2020-05-24 07:53] LABS: MAGNESIUM 2.3 mg/dL (1.8-2.4)
[2020-05-24 07:56] LABS: CREATININE 0.7 mg/dL (0.55-1.3); PHOSPHOROUS 3.6 mg/dL (2.5-4.9)
[2020-05-24 07:57] LABS: BILIRUBIN,TOTAL 0.8 mg/dL (0.2-1); TOT PROT 5.9 g/dl (6.4-8.2)
[2020-05-24] MEDS ORDERED: FUROSEMIDE 40 MG/4 ML INJECTABLE VIAL IVPUSH ONE (08:08)
[2020-05-24] MEDS: ENOXAPARIN NA (PORCINE) 80 MG/0.8 ML DISP.SYRIN SQ SCH ×2 (09:46→21:26)
[2020-05-24] MEDS: DEXAMETHASONE SOD PHOSPHATE 4 MG/1 ML VIAL IVPUSH SCH (09:46)
[2020-05-24] MEDS: PANTOPRAZOLE SODIUM 40 MG VIAL IVPUSH SCH (09:46)
[2020-05-24] MEDS: ASCORBIC ACID 250 MG TABLET (FP) PO SCH (09:47)
[2020-05-24] MEDS: CHOLECALCIFEROL (VIT D SOLUTION) 400 UNIT/1 ML DROPS GT SCH (09:47)
[2020-05-24] MEDS: ZINC SULFATE 220 MG CAPSULE (FP) PO SCH (09:48)
[2020-05-24 10:28] LABS: ANISOCYTOSIS 1+; MACROCYTOSIS 0; PLATELET ESTIMATE INCREASED
[2020-05-24] MEDS ORDERED: NOREPINEPHRINE BITARTRATE 4 MG/4 ML ML IV ONE ×2 (11:16)
[2020-05-24] MEDS: MIDAZOLAM 100 MG in SODIUM CHLORIDE 100 ML IVPB SCH (21:25)
[2020-05-24] MEDS: SODIUM CHLORIDE 0.45% 1,000 ML IV SCH (21:25)
[2020-05-24] MEDS: NOREPINEPHRINE D5W PREMIX 16,000 MCG/500 ML BAG IVPB SCH (21:25)
[2020-05-24] MEDS: FENTANYL NS IVPB 500 MCG/100 ML BAG IVPB SCH (21:26)
[2020-05-24] MEDS: CHLORHEXIDINE GLUCONATE 4% CLEANSER FOR DECOLONIZATION TP SCH (21:26)
[2020-05-25] MEDS: VECURONIUM BROMIDE 100 MG/100 ML BAG IVPB SCH ×2 (02:52→23:16)
[2020-05-25] MEDS ORDERED: MIDAZOLAM 100 MG/100 ML MG IVPB ONE ×2 (02:55→12:50)
[2020-05-25 07:03] LABS: BASO % 0.3 % (0-2.0); HEMATOCRIT 27.1 % (35.4-49); HEMOGLOBIN 8.2 GM/dL (11.7-16.9); LYMPH % 2.1 % (8-40); MCH 28.7 pg (25.7-33.7); MCHC 30.2 g/dl (32.0-35.9); MEAN CELL VOLUME 95.1 fl (80-96); MEAN PLT VOLUME 11.1 fl (7.5-11.1); MONO % 4.4 % (3.8-10.2); NEUT % 93.2 % (42.8-82.8); PLATELET COUNT 804 K/MM3 (134-434); RBC 2.85 M/mm3 (4.00-5.60); RDW 21.2 % (11.9-15.9)
[2020-05-25 07:08] LABS: WHITE BLOOD COUNT 44.1 K/mm3 (4.0-10.0)
[2020-05-25 07:20] LABS: POTASSIUM 5.5 mmol/L (3.5-5.1)
[2020-05-25 07:29] LABS: ALBUMIN 1.6 g/dl (3.4-5.0); BLOOD UREA NITROGEN 43.1 mg/dL (7-18); CALCIUM 7.8 mg/dL (8.5-10.1); MAGNESIUM 2.1 mg/dL (1.8-2.4)
[2020-05-25 07:30] LABS: BILIRUBIN,TOTAL 0.5 mg/dL (0.2-1); TOT PROT 5.8 g/dl (6.4-8.2)
[2020-05-25 07:32] LABS: CREATININE 0.8 mg/dL (0.55-1.3); PHOSPHOROUS 3.8 mg/dL (2.5-4.9)
[2020-05-25] MEDS ORDERED: FUROSEMIDE 40 MG/4 ML INJECTABLE VIAL IVPUSH ONE ×2 (07:45→22:00)
[2020-05-25 08:33] LABS: ANISOCYTOSIS 1+; MACROCYTOSIS 1+; OVALOCYTE 1+; PLATELET ESTIMATE INCREASED
[2020-05-25] MEDS: ENOXAPARIN NA (PORCINE) 80 MG/0.8 ML DISP.SYRIN SQ SCH ×2 (09:04→23:16)
[2020-05-25] MEDS: PANTOPRAZOLE SODIUM 40 MG VIAL IVPUSH SCH (09:04)
[2020-05-25] MEDS: SODIUM ZIRCONIUM CYCLOSILICATE (LOKELMA) 5 GM PACKET PO SCH ×2 (09:05→23:16)
[2020-05-25] MEDS: DEXAMETHASONE SOD PHOSPHATE 4 MG/1 ML VIAL IVPUSH SCH (09:05)
[2020-05-25] MEDS: ZINC SULFATE 220 MG CAPSULE (FP) PO SCH (09:07)
[2020-05-25] MEDS ORDERED: PT OWN MED DRAWER 7, Y5N ONE ×2 (09:12→19:05)
[2020-05-25] MEDS: CHOLECALCIFEROL (VIT D SOLUTION) 400 UNIT/1 ML DROPS GT SCH (09:16)
[2020-05-25] MEDS: ASCORBIC ACID 250 MG TABLET (FP) PO SCH (09:16)
[2020-05-25] MEDS: MIDAZOLAM 100 MG in SODIUM CHLORIDE 100 ML IVPB SCH (11:32)
[2020-05-25] MEDS ORDERED: NOREPINEPHRINE BITARTRATE 4 MG/4 ML ML IV ONE (13:44)
[2020-05-25] MEDS: NOREPINEPHRINE D5W PREMIX 16,000 MCG/500 ML BAG IVPB SCH (13:52)
[2020-05-25] MEDS: SODIUM CHLORIDE 0.45% 1,000 ML IV SCH (13:54)
[2020-05-25] MEDS: FENTANYL NS IVPB 500 MCG/100 ML BAG IVPB SCH (13:55)
[2020-05-25] MEDS: [UNRECOGNIZED DRUG - OTHER] GT SCH (19:07)
[2020-05-25] MEDS: HYDROXYUREA GT SCH (19:07)
[2020-05-25] MEDS: CHLORHEXIDINE GLUCONATE 4% CLEANSER FOR DECOLONIZATION TP SCH (23:16)
[2020-05-26] MEDS ORDERED: MIDAZOLAM 100 MG/100 ML MG IVPB ONE ×3 (01:22→19:09)
[2020-05-26] MEDS ORDERED: NOREPINEPHRINE BITARTRATE 4 MG/4 ML ML IV ONE (03:57)
[2020-05-26] MEDS ORDERED: PT OWN MED DRAWER 7, Y5N ONE ×2 (10:50→16:07)
[2020-05-26] MEDS: SODIUM ZIRCONIUM CYCLOSILICATE (LOKELMA) 5 GM PACKET PO SCH ×2 (10:51→21:14)
[2020-05-26] MEDS: ZINC SULFATE 220 MG CAPSULE (FP) PO SCH (10:52)
[2020-05-26] MEDS: PANTOPRAZOLE SODIUM 40 MG VIAL IVPUSH SCH (10:52)
[2020-05-26] MEDS: ASCORBIC ACID 250 MG TABLET (FP) PO SCH (10:52)
[2020-05-26] MEDS: CHOLECALCIFEROL (VIT D SOLUTION) 400 UNIT/1 ML DROPS GT SCH (10:53)
[2020-05-26] MEDS: DEXAMETHASONE SOD PHOSPHATE 4 MG/1 ML VIAL IVPUSH SCH (10:53)
[2020-05-26] MEDS: ENOXAPARIN NA (PORCINE) 80 MG/0.8 ML DISP.SYRIN SQ SCH (10:54)
[2020-05-26] MEDS: FENTANYL NS IVPB 500 MCG/100 ML BAG IVPB SCH ×2 (11:00→20:54)
[2020-05-26] MEDS: MIDAZOLAM 100 MG in SODIUM CHLORIDE 100 ML IVPB SCH ×2 (11:03→20:54)
[2020-05-26] MEDS ORDERED: ATROPINE SULFATE 1 MG/10 ML DISP.SYRIN ONE (11:19)
[2020-05-26] MEDS: SODIUM CHLORIDE 0.45% 1,000 ML IV SCH (13:53)
[2020-05-26 15:31] LABS: INR 1.49 (0.83-1.09); PROTHROMBIN TIME (PATIENT) 17.8 SEC (9.7-13.0)
[2020-05-26 15:33] LABS: ACTIVATED PTT 31.5 SECONDS (25.2-36.5)
[2020-05-26 15:40] LABS: POTASSIUM 5.6 mmol/L (3.5-5.1)
[2020-05-26 15:42] LABS: ALBUMIN 1.7 g/dl (3.4-5.0); BLOOD UREA NITROGEN 59.1 mg/dL (7-18); CALCIUM 7.7 mg/dL (8.5-10.1)
[2020-05-26 15:46] LABS: CREATININE 1.1 mg/dL (0.55-1.3)
[2020-05-26 15:47] LABS: BILIRUBIN,TOTAL 0.5 mg/dL (0.2-1)
[2020-05-26] MEDS ORDERED: FUROSEMIDE 40 MG/4 ML INJECTABLE VIAL IVPUSH ONE (16:27)
[2020-05-26] MEDS: HYDROXYUREA PO SCH (17:17)
[2020-05-26] MEDS: [UNRECOGNIZED DRUG - OTHER] PO SCH (17:17)
[2020-05-26] MEDS: VECURONIUM BROMIDE 100 MG/100 ML BAG IVPB SCH (17:17)
[2020-05-26] MEDS: NOREPINEPHRINE D5W PREMIX 16,000 MCG/500 ML BAG IVPB SCH (18:22)
[2020-05-26 19:18] LABS: HEMOGLOBIN 7.7 GM/dL (11.7-16.9); MCH 28.8 pg (25.7-33.7); MCHC 29.8 g/dl (32.0-35.9); MEAN CELL VOLUME 96.7 fl (80-96); PLATELET COUNT 669 K/MM3 (134-434); RBC 2.69 M/mm3 (4.00-5.60); RDW 20.4 % (11.9-15.9)
[2020-05-26 19:21] LABS: WHITE BLOOD COUNT 51.9 K/mm3 (4.0-10.0)
[2020-05-26] MEDS: ACETAMINOPHEN 650 MG/20.3 ML ORAL SOLUTION (CUPS) PO PRN (21:14)
[2020-05-26] MEDS: CHLORHEXIDINE GLUCONATE 4% CLEANSER FOR DECOLONIZATION TP SCH (21:23)
[2020-05-26 22:05] LABS: POTASSIUM 5.5 mmol/L (3.5-5.1)
[2020-05-26 22:07] LABS: BLOOD UREA NITROGEN 66.6 mg/dL (7-18); CALCIUM 7.9 mg/dL (8.5-10.1)
[2020-05-26 22:11] LABS: CREATININE 1.4 mg/dL (0.55-1.3)
[2020-05-27] MEDS: ACETAMINOPHEN 650 MG/20.3 ML ORAL SOLUTION (CUPS) PO PRN (02:46)
[2020-05-27] MEDS ORDERED: MIDAZOLAM 100 MG/100 ML MG IVPB ONE ×2 (06:03→15:14)
[2020-05-27 07:22] LABS: BASO % 0.1 % (0-2.0); HEMATOCRIT 25.7 % (35.4-49); HEMOGLOBIN 7.5 GM/dL (11.7-16.9); LYMPH % 1.8 % (8-40); MCH 28.8 pg (25.7-33.7); MCHC 29.2 g/dl (32.0-35.9); MEAN CELL VOLUME 98.6 fl (80-96); MEAN PLT VOLUME 11.3 fl (7.5-11.1); MONO % 2.1 % (3.8-10.2); PLATELET COUNT 626 K/MM3 (134-434); RDW 20.3 % (11.9-15.9)
[2020-05-27 07:39] LABS: POTASSIUM 5.6 mmol/L (3.5-5.1)
[2020-05-27 07:48] LABS: ALBUMIN 1.6 g/dl (3.4-5.0); BLOOD UREA NITROGEN 69.5 mg/dL (7-18); CALCIUM 7.5 mg/dL (8.5-10.1)
[2020-05-27 07:50] LABS: BILIRUBIN,TOTAL 0.4 mg/dL (0.2-1); MAGNESIUM 2.5 mg/dL (1.8-2.4); TOT PROT 6.1 g/dl (6.4-8.2)
[2020-05-27 07:51] LABS: CREATININE 1.4 mg/dL (0.55-1.3)
[2020-05-27 07:52] LABS: PHOSPHOROUS 6.2 mg/dL (2.5-4.9)
[2020-05-27] MEDS ORDERED: SODIUM CHLORIDE 1,000 ML IV STA (08:22)
[2020-05-27] MEDS ORDERED: PHENYLEPHRINE NS PREMIX 50,000 MCG/500 ML BAG CVP SCH (09:00)
[2020-05-27 09:17] LABS: ANISOCYTOSIS 1+; MACROCYTOSIS 1+; OVALOCYTE 1+
[2020-05-27 09:21] LABS: PLATELET ESTIMATE INCREASED
[2020-05-27 09:47] LABS: WHITE BLOOD COUNT 47.6 K/mm3 (4.0-10.0)
[2020-05-27] MEDS ORDERED: PT OWN MED DRAWER 7, Y5N ONE ×3 (10:24→13:47)
[2020-05-27] MEDS: SODIUM ZIRCONIUM CYCLOSILICATE (LOKELMA) 5 GM PACKET PO SCH (10:44)
[2020-05-27] MEDS: ZINC SULFATE 220 MG CAPSULE (FP) PO SCH (10:44)
[2020-05-27] MEDS: ASCORBIC ACID 250 MG TABLET (FP) PO SCH (10:45)
[2020-05-27] MEDS: DEXAMETHASONE SOD PHOSPHATE 4 MG/1 ML VIAL IVPUSH SCH (10:45)
[2020-05-27] MEDS: PANTOPRAZOLE SODIUM 40 MG VIAL IVPUSH SCH (10:46)
[2020-05-27] MEDS: POLYETHYLENE GLYCOL 3350 119 GM BTL NGT SCH (10:46)
[2020-05-27] MEDS: FENTANYL NS IVPB 500 MCG/100 ML BAG IVPB SCH ×3 (11:12→17:22)
[2020-05-27] MEDS ORDERED: HYDROXYUREA 500 MG CAPSULE PO SCH (12:00)
[2020-05-27] MEDS: VASOPRESSIN 40 UNITS in SODIUM CHLORIDE 98 ML IVPB SCH (12:08)
[2020-05-27] MEDS ORDERED: HYDROXYUREA GT SCH ×3 (14:20→14:42)
[2020-05-27] MEDS ORDERED: HYDROXYUREA PO SCH (14:22)
[2020-05-27] MEDS: SODIUM CHLORIDE 0.45% 1,000 ML IV SCH ×2 (14:23→20:48)
[2020-05-27] MEDS: CHOLECALCIFEROL (VIT D SOLUTION) 400 UNIT/1 ML DROPS GT SCH (14:25)
[2020-05-27] MEDS: HYDROXYUREA PO SCH (14:27)
[2020-05-27] MEDS: [UNRECOGNIZED DRUG - OTHER] PO SCH (14:27)
[2020-05-27 14:35] VITALS: BMI 33.2
[2020-05-27] MEDS: HYDROXYUREA GT SCH (14:44)
[2020-05-27] MEDS ORDERED: NOREPINEPHRINE BITARTRATE 8,000 MCG/500 ML BAG IVPB ONE (15:02)
[2020-05-27] MEDS: NOREPINEPHRINE D5W PREMIX 16,000 MCG/500 ML BAG IVPB SCH ×2 (15:53)
[2020-05-27] MEDS ORDERED: FUROSEMIDE 40 MG/4 ML INJECTABLE VIAL IVPUSH ONE (16:17)
[2020-05-27] MEDS ORDERED: FENTANYL IVPB 500 MCG/100 ML BAG IVPB ONE (17:12)
[2020-05-27] MEDS: MIDAZOLAM 100 MG in SODIUM CHLORIDE 100 ML IVPB SCH ×2 (18:10→21:39)
[2020-05-27] MEDS: DOCUSATE NA 100 MG/10 ML UNIT-DOSE CUPS NGT SCH (18:33)
[2020-05-27] MEDS: VECURONIUM BROMIDE 100 MG/100 ML BAG IVPB SCH (20:48)
[2020-05-27 21:15] LABS: POTASSIUM 5.9 mmol/L (3.5-5.1)
[2020-05-27 21:17] LABS: CALCIUM 7.4 mg/dL (8.5-10.1)
[2020-05-27 21:18] LABS: BLOOD UREA NITROGEN 77.1 mg/dL (7-18)
[2020-05-27 21:21] LABS: CREATININE 1.6 mg/dL (0.55-1.3)
[2020-05-27] MEDS: CHLORHEXIDINE GLUCONATE 4% CLEANSER FOR DECOLONIZATION TP SCH (21:38)
[2020-05-27] MEDS ORDERED: SENNOSIDES 8.6MG TABLET (FP) PO SCH (22:00)
[2020-05-28] MEDS ORDERED: ACETAMINOPHEN INJECTION 100 ML IVPB ONE (02:04)
[2020-05-28] MEDS ORDERED: ACETAMINOPHEN 1000 MG/100 ML VIAL (NON FORMULARY) IVPB PRN (02:18)
[2020-05-28] MEDS ORDERED: DEXTROSE 50%-WATER - 25 GM/50 ML VIAL IVPUSH ONE (03:07)
[2020-05-28] MEDS ORDERED: INSULIN REGULAR HUMAN 100 UNITS/ML *VIAL IVPUSH ONE (03:07)
[2020-05-28] MEDS ORDERED: DEXTROSE 50%-WATER - 25 GM/50 ML VIAL ONE (03:15)
[2020-05-28] MEDS ORDERED: NOREPINEPHRINE BITARTRATE 4 MG/4 ML ML IV ONE (03:17)
[2020-05-28 07:26] LABS: BASO % 0.1 % (0-2.0); HEMATOCRIT 24.7 % (35.4-49); HEMOGLOBIN 7.2 GM/dL (11.7-16.9); LYMPH % 2.5 % (8-40); MCH 29.5 pg (25.7-33.7); MCHC 29.1 g/dl (32.0-35.9); MEAN CELL VOLUME 101.5 fl (80-96); MEAN PLT VOLUME 11.2 fl (7.5-11.1); MONO % 2.1 % (3.8-10.2); NEUT % 95.3 % (42.8-82.8); PLATELET COUNT 415 K/MM3 (134-434); RBC 2.43 M/mm3 (4.00-5.60); RDW 20.3 % (11.9-15.9)
[2020-05-28 07:40] LABS: POTASSIUM 5.8 mmol/L (3.5-5.1)
[2020-05-28 07:57] LABS: ALBUMIN 1.6 g/dl (3.4-5.0); BLOOD UREA NITROGEN 85.6 mg/dL (7-18); CALCIUM 7.5 mg/dL (8.5-10.1); MAGNESIUM 2.7 mg/dL (1.8-2.4)
[2020-05-28 08:00] LABS: CREATININE 2.4 mg/dL (0.55-1.3); PHOSPHOROUS 8.4 mg/dL (2.5-4.9)
[2020-05-28] MEDS ORDERED: AMINO ACIDS/PROTEIN HYDROLYS 30 ML LIQUID.PKT PO SCH (08:00)
[2020-05-28 08:01] LABS: BILIRUBIN,TOTAL 0.8 mg/dL (0.2-1)
[2020-05-28] MEDS ORDERED: MIDAZOLAM 100 MG/100 ML MG IVPB ONE (08:05)
[2020-05-28] MEDS: DOCUSATE NA 100 MG/10 ML UNIT-DOSE CUPS NGT SCH (09:00)
[2020-05-28] MEDS: DEXAMETHASONE SOD PHOSPHATE 4 MG/1 ML VIAL IVPUSH SCH (09:00)
[2020-05-28 09:41] LABS: WHITE BLOOD COUNT 38.2 K/mm3 (4.0-10.0)
[2020-05-28 09:50] LABS: ANISOCYTOSIS 1+; MACROCYTOSIS 1+; OVALOCYTE 1+; PLATELET ESTIMATE NORMAL
[2020-05-28] MEDS: POLYETHYLENE GLYCOL 3350 119 GM BTL NGT SCH (09:52)
[2020-05-28] MEDS: PANTOPRAZOLE SODIUM 40 MG VIAL IVPUSH SCH (09:53)
[2020-05-28] MEDS ORDERED: PT OWN MED DRAWER 7, Y5N ONE ×2 (10:11→13:42)
[2020-05-28] MEDS: ZINC SULFATE 220 MG CAPSULE (FP) PO SCH (10:36)
[2020-05-28] MEDS: HYDROXYUREA GT SCH (10:36)
[2020-05-28] MEDS: ASCORBIC ACID 250 MG TABLET (FP) PO SCH (10:36)
[2020-05-28] MEDS: CHOLECALCIFEROL (VIT D SOLUTION) 400 UNIT/1 ML DROPS GT SCH (10:36)
[2020-05-28] MEDS ORDERED: FUROSEMIDE 40 MG/4 ML INJECTABLE VIAL IVPUSH ONE (11:31)
[2020-05-28] MEDS ORDERED: ALBUMIN HUMAN 25% 100 ML VIAL IVPB ONE (11:32)
[2020-05-28] MEDS: VASOPRESSIN 40 UNITS in SODIUM CHLORIDE 98 ML IVPB SCH (14:00)
[2020-05-28 14:36] VITALS: PULSE 96
[2020-05-28] MEDS: NOREPINEPHRINE D5W PREMIX 16,000 MCG/500 ML BAG IVPB SCH (15:00)
[2020-05-28] MEDS ORDERED: SODIUM ZIRCONIUM CYCLOSILICATE (LOKELMA) 5 GM PACKET PO SCH (15:14)
[2020-05-28 17:09] VITALS: BP 82/64
[2020-05-28] MEDS: SODIUM CHLORIDE 0.45% 1,000 ML IV SCH (17:22)
[2020-05-28 17:42] VITALS: TEMP 97.8
== END 2020-05-28 17:33 | disposition expired | DRG 207 ==
LOC: JER 13:06 → JERBED 13:58 → J7W 20:23 → JICU 05-19 01:36
PROVIDERS: ADMIT Student in an Organized Health Care Education/Training Program; ATTEND Internal Medicine
PROC: XW13325 Transfusion of Convalescent Plasma (Nonautologous) into Peripheral Vein, Percutaneous Approach, New Technology Group 5 (ICD-10-PCS; 2020-05-18)
PROC: XW033E5 Introduction of Remdesivir Anti-infective into Peripheral Vein, Percutaneous Approach, New Technology Group 5 (ICD-10-PCS; 2020-05-18)
PROC: 5A1955Z Respiratory Ventilation, Greater than 96 Consecutive Hours (ICD-10-PCS; principal; 2020-05-20)
PROC: 0BH17EZ Insertion of Endotracheal Airway into Trachea, Via Natural or Artificial Opening (ICD-10-PCS; 2020-05-20)
PROC: 05HN33Z Insertion of Infusion Device into Left Internal Jugular Vein, Percutaneous Approach (ICD-10-PCS; 2020-05-20)
PROC: B544ZZA Ultrasonography of Left Jugular Veins, Guidance (ICD-10-PCS; 2020-05-20)
PROC: 30233N1 Transfusion of Nonautologous Red Blood Cells into Peripheral Vein, Percutaneous Approach (ICD-10-PCS; 2020-05-23)
PROC: 0W9930Z Drainage of Right Pleural Cavity with Drainage Device, Percutaneous Approach (ICD-10-PCS; 2020-05-26)
PROC: 5A12012 Performance of Cardiac Output, Single, Manual (ICD-10-PCS; 2020-05-28)
DX: U07.1 COVID-19 (principal); J12.82 Pneumonia due to coronavirus disease 2019; J80 Acute respiratory distress syndrome; A41.9 Sepsis, unspecified organism; K72.00 Acute and subacute hepatic failure without coma; E87.1 Hypo-osmolality and hyponatremia; J93.9 Pneumothorax, unspecified; D47.3 Essential (hemorrhagic) thrombocythemia; D69.6 Thrombocytopenia, unspecified; L89.811 Pressure ulcer of head, stage 1; I46.9 Cardiac arrest, cause unspecified; J98.2 Interstitial emphysema; R41.82 Altered mental status, unspecified; E87.5 Hyperkalemia; I95.9 Hypotension, unspecified; D64.9 Anemia, unspecified; D72.829 Elevated white blood cell count, unspecified; E88.09 Other disorders of plasma-protein metabolism, not elsewhere classified
CPT/HCPCS: 31500; 36415; 36430; 36600; 70450-TC; 71045-TC-FY; 72125-TC; 80048; 80053; 81003; 82248; 82436; 82550; 82728; 82803; 83605; 83615; 83735; 83930; 83935; 84100; 84132; 84133; 84300; 84484; 85025; 85027; 85379; 85610; 85651; 85730; 86140; 86738; 86850; 86900; 86901; 86922; 87040; 87070; 87077; 87086; 87205; 87426; 87804; 87899; 93005; 93010; 94002; 94660; 99285-25; C9399; J0131; J1100; J8999; P9017; P9058